=== PATIENT | male | born 1965 | race Caucasian/White ===

== ENCOUNTER 2024-05-27 09:44 | Outpatient (CLI) | payer BC | END 2024-05-27 09:45 | disposition home or self-care (01) | LOC: ULT 09:44 | PROVIDERS: ATTEND Family Medicine | DX: R74.8 Abnormal levels of other serum enzymes (principal); K76.0 Fatty (change of) liver, not elsewhere classified; K74.60 Unspecified cirrhosis of liver | CPT/HCPCS: 76705 ==